=== PATIENT | female | born 1975 | race Caucasian/White ===

== ENCOUNTER 2017-03-11 08:55 | Emergency (ER) | payer BC ==
[~2017-03-11] VITALS: Ht 157.5 cm; Wt 71.8 kg
[2017-03-11 09:03] VITALS: BP 113/69
--- NOTE | 2017-03-11 09:11 | NUR ---
Note undone in EDM - 03/11/17 at 0917 by ETHAN 41F BIB SELF C/O ANXIETY X 1 WEEK AND A HALF. PT STS HX OF ANXIETY..TRIED TAKING HOME MEDICATION BUT HAS NOT HELPED. PT DENIES ANY SI OR HI IDEATION. PT IS AOX4, RR ARE EVEN AND UNLABORED. PT POSITIONED FOR COMFORT, BED DOWN. NAD. WILL CONTINUE TO MONITOR. AWAITING ER PRIMARY EVAL.
--- NOTE | 2017-03-11 09:12 | NUR ---
Patient ambulated to bed 11. RN evaluating patient at bedside.
[2017-03-11] MEDS: LORazepam 1 MG TAB PO ONE (09:43)
[2017-03-11 10:22] LABS: ANION GAP 11.3 (8-16); CARBON DIOXIDE 28.6 mmol/L (21-32); CREATININE 0.6 mg/dL (0.6-1.3); POTASSIUM 4.9 mmol/L (3.5-5.1)
--- NOTE | 2017-03-11 10:39 | NUR ---
Patient discharged with v/s stable. Written and verbal after care instructions given and explained. Patient alert, oriented and verbalized understanding of instructions. Ambulatory with to car. All questions addressed prior to discharge. ID band removed. Patient advised to follow up with PMD. Rx of Ativan given. Patient educated on indication of medication including possible reaction and side effects. Opportunity to ask questions provided and answered.
[2017-03-11 10:40] VITALS: BP 118/70
== END 2017-03-11 10:39 | disposition home or self-care (01) ==
LOC: MED 08:55
DX: F41.9 Anxiety disorder, unspecified (principal); E11.9 Type 2 diabetes mellitus without complications; Z88.5 Allergy status to narcotic agent
CPT/HCPCS: 36415; 80048; 99284

== ENCOUNTER 2018-06-28 16:14 | Emergency (ER) | payer BC, OTHER ==
[~2018-06-28] VITALS: Ht 157.5 cm; Wt 72.6 kg
[2018-06-28 16:26] VITALS: BP 120/87
--- NOTE | 2018-06-28 16:26 | NUR ---
PATIENT TO BED #11 BY EXTRAS CASTING DIRECTOR
--- NOTE | 2018-06-28 16:27 | NUR ---
BIBA. PER CALCIMINER, CALLED CONCERN OF HIS . TOOK 6 SHOTS OF TEQUILA AND BECAME ALTERED. GIVEN ZOFRAN 4MG IV THEN PATIENT BECAME MORE AWARE AND CONVERSANT. HX: ANXIETY, GASTRIC BYPASS. TAKES CELEXA, ABILIFY AND KLONOPIN. ANSWERED ALL QUESTIONS APPROPPRIATELY, FULL CLEAR SPEECH. AAO X4. PERRLA BRISK 3 MM. EQUAL SHERMAN UPPER AND LOWER STRENGTH. HOB UP. BED SIDE RAILS UP X1. ON LOW BED POSITION, LOCKED. ER MADE AWARE OF PT STATUS.
[2018-06-28] MEDS ORDERED: CITA40TA13 PO (16:36)
[2018-06-28] MEDS ORDERED: CLON1TAB PO (16:36)
--- NOTE | 2018-06-28 16:43 | NUR ---
DR HOWARD AT BEDSIDE FOR PT EVALUATION.
[2018-06-28] MEDS ORDERED: NACL 0.9% 1,000 ML IV ONE (16:44)
[2018-06-28] MEDS ORDERED: ONDANSETRON 4 MG/2 ML VIAL IVP ONE (16:45)
[2018-06-28 17:31] LABS: BASOPHILS % (AUTO) 0.4 % (0.0-2.0); EOSINOPHILS # (AUTO) 0.1 K/uL (0-0.4); EOSINOPHILS % (AUTO) 1.1 % (0.0-4.0); HEMATOCRIT 40.3 % (36-48); HEMOGLOBIN 13.5 g/dL (12.0-16.0); LYMPHOCYTES # (AUTO) 1.9 K/uL (2.5-16.5); LYMPHOCYTES % (AUTO) 25.1 % (20.5-51.1); MEAN CORPUSCULAR HEMOGLOBIN 30 pg (27-31); MEAN CORPUSCULAR HGB CONC 34 g/dL (33-37); MEAN CORPUSCULAR VOLUME 88.4 fL (80-94); MONOCYTES # (AUTO) 0.4 K/uL (0.8-1.0); MONOCYTES % (AUTO) 5.2 % (1.7-9.3); NEUTROPHILS # (AUTO) 5.1 K/uL (1.8-7.7); NEUTROPHILS % (AUTO) 68.2 % (42.2-75.2); PLATELET COUNT (AUTO) 210 K/uL (140-450); RED BLOOD CELL COUNT(AUTO) 4.55 MIL/uL (4.20-5.40); RED CELL DISTRIBUTION WIDTH 13.1 % (11.6-13.7); WHITE BLOOD COUNT (AUTO) 7.4 K/uL (4.8-10.8)
[2018-06-28 17:41] LABS: ANION GAP 15.7 (8-16); CARBON DIOXIDE 24.1 mmol/L (21-32); CREATININE 0.7 mg/dL (0.6-1.3); POTASSIUM 3.8 mmol/L (3.5-5.1)
[2018-06-28 17:42] LABS: BARBITURATE, URINE NEG. ng/ml (NEG <=200); BENZODIAZEPINE, URINE NEG. ng/mL (NEG <=200); CANNABINOID, URINE POS. ng/mL (NEG <=50); COCAINE, URINE NEG. ng/mL (NEG <=300); OPIATE, URINE NEG. ng/mL (NEG <=2000); PHENCYCLIDINE SCREEN,URINE NEG. ng/mL (NEG <=25)
[2018-06-28 17:47] LABS: ALBUMIN 3.4 g/dL (3.4-5.0)
[2018-06-28 18:52] VITALS: BP 107/76
== END 2018-06-28 18:52 | disposition home or self-care (01) ==
LOC: MED 16:14
DX: R11.2 Nausea with vomiting, unspecified (principal); F10.129 Alcohol abuse with intoxication, unspecified; F41.9 Anxiety disorder, unspecified; Z88.5 Allergy status to narcotic agent; Z79.899 Other long term (current) drug therapy
CPT/HCPCS: 36415; 80053; 80305; 81002; 81025; 82948; 83690; 85025; 96361; 96374; 99283; J2405; J7030

== ENCOUNTER 2019-07-05 16:20 | Emergency (ER) | payer OTHER ==
[~2019-07-05] VITALS: Ht 157.5 cm; Wt 79.4 kg
[~2019-07-05 16:20] MED LIST: CITA40TA13 PO; CLON1TAB PO
[2019-07-05 16:26] VITALS: BP 125/89
[2019-07-05] MEDS ORDERED: KETOROLAC 15 MG/ML VIAL IVP ONE (16:55)
[2019-07-05] MEDS ORDERED: diphenhydrAMINE 50 MG/ML VIAL IVP ONE (16:55)
[2019-07-05] MEDS ORDERED: METOCLOPRAMIDE 10 MG/2 ML INJ VIAL IVP ONE (16:55)
[2019-07-05] MEDS ORDERED: NACL 0.9% 1,000 ML IV ONE (16:55)
--- NOTE | 2019-07-05 17:22 | NUR ---
44 Y/O FEMALE C/O TENSION MIGRAINE STARTING TODAY. PT REPORTS PHOTOSENSITIVITY AND NASEUA, DENIES VOMITING/DIARRHEA/CHILLS/FEVER. RESP EVEN AND UNLABORED. LUNG SOUNDS CLEAR BILAT LOBES. DOES NOT MEET COVID CRITERIA. AAOX4. ABLE TO AMBULATE TO BED. NO PMH
[2019-07-05 17:56] VITALS: BP 132/78
--- NOTE | 2019-07-05 18:00 | NUR ---
Patient discharged with v/s stable. Written and verbal after care instructions given and explained. Patient verbalized understanding. Ambulatory with steady gait. All questions addressed prior to discharge. Advised to follow up with PMD.
== END 2019-07-05 18:00 | disposition home or self-care (01) ==
LOC: MED 16:20
DX: R51 Headache (principal); H53.149 Visual discomfort, unspecified; G43.909 Migraine, unspecified, not intractable, without status migrainosus; Z98.84 Bariatric surgery status; Z79.899 Other long term (current) drug therapy; Z88.5 Allergy status to narcotic agent
CPT/HCPCS: 96374; 96375; 99284; J1200; J1885; J2765; J7030

== ENCOUNTER 2021-01-05 14:37 | Emergency (ER) | payer OTHER ==
[~2021-01-05] VITALS: Ht 157.5 cm; Wt 68.0 kg
[2021-01-05 14:53] VITALS: BP 112/75
--- NOTE | 2021-01-05 15:06 | NUR ---
PT AMB TO BED 11
--- NOTE | 2021-01-05 15:20 | NUR ---
BLOOD WORK COLLECTED AND WALKED OVER TO LAB
--- NOTE | 2021-01-05 15:28 | NUR ---
PER ERMD 12 LEAD WAS DONE ON PT AND CAME BACK NSR AT 63 HR,
[2021-01-05 15:32] LABS: BASOPHILS % (AUTO) 0.9 % (0.0-2.0); EOSINOPHILS # (AUTO) 0.1 K/uL (0-0.4); HEMATOCRIT 33.3 % (36-48); HEMOGLOBIN 10.6 g/dL (12.0-16.0); LYMPHOCYTES % (AUTO) 36.4 % (20.5-51.1); MEAN CORPUSCULAR HEMOGLOBIN 24 pg (27-31); MEAN CORPUSCULAR HGB CONC 32 g/dL (33-37); MEAN CORPUSCULAR VOLUME 75.8 fL (80-94); MONOCYTES # (AUTO) 0.5 K/uL (0.8-1.0); MONOCYTES % (AUTO) 9.1 % (1.7-9.3); NEUTROPHILS # (AUTO) 2.9 K/uL (1.8-7.7); NEUTROPHILS % (AUTO) 52.6 % (42.2-75.2); PLATELET COUNT (AUTO) 248 K/uL (140-450); RED CELL DISTRIBUTION WIDTH 25.2 % (11.6-13.7); WHITE BLOOD COUNT (AUTO) 5.5 K/uL (4.8-10.8)
--- NOTE | 2021-01-05 15:34 | NUR ---
18 [address] IV ESTABLISHED IN [facility]
--- NOTE | 2021-01-05 15:36 | NUR ---
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
--- NOTE | 2021-01-05 15:40 | NUR ---
45 Y FEMALE FROM HOME WITH C/O GENERALIZED WEAKNESS ANDDIFFICULTY BREATHING X 1 MONTH ALONG WITH C/O HEADACHE, MID CHEST PAIN X 1 WEEK. PT STATED THE CURRENT PAIN IS NON-RADITING 3/10 PRESSURE LIKE PAIN. BREATH SOUNDS CLEAR THROUGHOUT, CAP REFILL <2 SECONDS, AND PATIENT IS PALE. PT STATED SHE WAS GIVEN IRON PILLS TO TAKE AT HOME, BUT IS STILL EXPERINCING LIGHT HEADEDNESS AND FATIGUE. PMH: IRON DEFICAINCY, GASTRIC BY PASS ALLERGIES: CODEINE
[2021-01-05 15:46] LABS: ALBUMIN 3.4 g/dL (3.4-5.0); ANION GAP 14.1 (8-16); CARBON DIOXIDE 23.9 mmol/L (21-32); CREATININE 0.6 mg/dL (0.6-1.3)
[2021-01-05] MEDS ORDERED: NACL 0.9% 1,000 ML IV ONE (16:05)
[2021-01-05 16:17] LABS: TOTAL BILIRUBIN 0.8 mg/dL (0.0-1.0)
[2021-01-05 16:18] LABS: FREE T4 (FREE THYROXINE) 0.87 ng/dL (0.76-1.46); THYROID STIMULATING HORMONE 0.66 uIU/mL (0.34-3.74)
[2021-01-05 17:01] VITALS: BP 123/72
== END 2021-01-05 16:59 | disposition home or self-care (01) ==
LOC: MED 14:37
DX: D64.9 Anemia, unspecified (principal); R53.1 Weakness; R06.02 Shortness of breath; Z88.5 Allergy status to narcotic agent; Z79.899 Other long term (current) drug therapy; Z98.84 Bariatric surgery status
CPT/HCPCS: 36415; 71045; 80053; 81002; 81025; 84439; 84443; 84484; 85025; 86886; 86900; 86901; 93005; 99285; Q0092; J7030

== ENCOUNTER 2021-05-20 07:31 | Emergency (ER) | payer OTHER ==
[~2021-05-20] VITALS: Ht 157.5 cm; Wt 68.0 kg
[2021-05-20 07:32] VITALS: BP 136/72
--- NOTE | 2021-05-20 07:49 | NUR ---
46 Y/O F BIB SELF WITH C/O CHEST PAIN X1 WEEK. STATES SHE HAS HX OF ANEMIA AND BELIEVES DUE TO HER HEAVY PERIOD LAST WEEK SHE HAS A LOW BLOOD COUNT CAUSING HER PAIN. REPORTS TAKING IBUPROFEN WITH MILD RELIEF. DENIES SOB, DIZZINESS. PT STATES 7/10 PAIN. DESCRIBES "ELEPHANT SITTING ON MY CHEST" NON RADIATING. MEDHX: ANEMIA ALLERGIES: CODEINE
--- NOTE | 2021-05-20 08:14 | NUR ---
BLOOD WORK COLLECTED AND SENT TO LAB
--- NOTE | 2021-05-20 08:15 | NUR ---
X-RAY AT BEDSIDE
[2021-05-20 08:23] LABS: BASOPHILS % (AUTO) 0.8 % (0.0-2.0); EOSINOPHILS # (AUTO) 0.1 K/uL (0-0.4); EOSINOPHILS % (AUTO) 0.9 % (0.0-4.0); HEMATOCRIT 37.2 % (36-48); HEMOGLOBIN 12.4 g/dL (12.0-16.0); LYMPHOCYTES # (AUTO) 1.8 K/uL (2.5-16.5); LYMPHOCYTES % (AUTO) 29.6 % (20.5-51.1); MEAN CORPUSCULAR HEMOGLOBIN 30 pg (27-31); MEAN CORPUSCULAR HGB CONC 33 g/dL (33-37); MEAN CORPUSCULAR VOLUME 90.9 fL (80-94); MONOCYTES # (AUTO) 0.4 K/uL (0.8-1.0); MONOCYTES % (AUTO) 6.1 % (1.7-9.3); NEUTROPHILS # (AUTO) 3.8 K/uL (1.8-7.7); NEUTROPHILS % (AUTO) 62.6 % (42.2-75.2); PLATELET COUNT (AUTO) 200 K/uL (140-450); RED BLOOD CELL COUNT(AUTO) 4.09 MIL/uL (4.20-5.40); RED CELL DISTRIBUTION WIDTH 14.1 % (11.6-13.7)
[2021-05-20 08:53] LABS: ALBUMIN 3.2 g/dL (3.4-5.0); ANION GAP 13.4 (8-16); CARBON DIOXIDE 25.6 mmol/L (21-32); CREATININE 0.5 mg/dL (0.6-1.3); TOTAL BILIRUBIN 1.1 mg/dL (0.0-1.0)
[2021-05-20] MEDS ORDERED: ALUMINUM HYD/MAG/SIMETHICONE 30 ML UDC ONE (09:55)
[2021-05-20] MEDS ORDERED: DICYCLOMINE HCL LIQUID 10 MG/5 ML UDC ONE (09:55)
[2021-05-20] MEDS: DICYCLOMINE HCL LIQUID 20 MG, ALUMINUM HYD/MAG/SIMETHICONE 30 ML, LIDOCAINE VISCOUS 2% ... PO ONE ×3 (10:10)
[2021-05-20 10:47] VITALS: BP 117/70
--- NOTE | 2021-05-20 10:47 | NUR ---
Patient discharged with v/s stable. Written and verbal after care instructions given and explained. Patient alert, oriented and verbalized understanding of instructions. Ambulatory with steady gait. All questions addressed prior to discharge. ID band removed. Patient advised to follow up with PMD. Opportunity to ask questions provided and answered.
== END 2021-05-20 10:47 | disposition home or self-care (01) ==
LOC: MED 07:31
DX: R07.9 Chest pain, unspecified (principal); R53.1 Weakness; Z88.5 Allergy status to narcotic agent
CPT/HCPCS: 36415; 71045; 80053; 83690; 84484; 85025; 93005; 99285